=== PATIENT | male | born 1960 | race Caucasian/White ===

== ENCOUNTER 2023-07-14 16:56 | Emergency (ER) | payer OTHER, SELFPAY ==
[~2023-07-14] VITALS: Ht 170.2 cm; Wt 68.2 kg
[2023-07-14] MEDS ORDERED: iohexol 350MG/ML 100ml bottle IV ONE ×2 (17:15→18:21)
[2023-07-14 17:35] LABS: BASOPHILS % (AUTO) 0.3 % (0-1); EOSINOPHILS # (AUTO) 0.1 X10'3 (0-0.9); EOSINOPHILS % (AUTO) 0.9 % (0-6); HEMATOCRIT 45.3 % (42.0-52.0); LYMPHOCYTES # (AUTO) 1.8 X10'3 (1.1-4.8); LYMPHOCYTES % (AUTO) 21.7 % (21-51); MEAN CORPUSCULAR HEMOGLOBIN 30.2 PG (27.0-31.0); MEAN CORPUSCULAR HGB CONC 33.1 g/dL (33.0-36.5); MEAN CORPUSCULAR VOLUME 91.3 FL (78-98); MEAN PLATELET VOLUME 8.2 FL (7.4-10.4); MONOCYTES # (AUTO) 0.5 X10'3 (0-0.9); MONOCYTES % (AUTO) 6.7 % (2-12); NEUTROPHILS # (AUTO) 5.7 X10'3 (1.8-7.7); NEUTROPHILS % (AUTO) 70.4 % (42-75); PLATELET COUNT 209 X10'3 (140-440); RED BLOOD COUNT 4.97 X10'6 (4.70-6.10); RED CELL DISTRIBUTION WIDTH 13.3 % (11.5-14.5); WHITE BLOOD COUNT 8.1 X10'3 (4.5-11.0)
[2023-07-14 17:46] LABS: APTT 26 SECONDS (22-32); PROTHROMBIN TIME 10.5 SECONDS (9.0-12.0)
[2023-07-14 17:55] LABS: ALBUMIN 3.7 G/DL (3.4-5.0); ANION GAP 10 (8-16); BLOOD UREA NITROGEN 20 MG/DL (7-18); BUN/CREATININE RATIO 19.4 (10.0-20.0); CALCIUM 9.1 MG/DL (8.5-10.1); CHLORIDE 104 MMOL/L (99-107); CREATININE 1.03 MG/DL (0.60-1.10); GLUCOSE 93 MG/DL (70-104); POTASSIUM 3.2 MMOL/L (3.5-5.1); PRO BRAIN NATRIURETIC PEPTIDE 143 PG/ML (0-125); SODIUM 145 MMOL/L (135-145); TOTAL CARBON DIOXIDE 30.9 MMOL/L (24-32); eCRCL 68 ML/MIN; eGFR 73 ML/MIN
[2023-07-14] MEDS ORDERED: iohexol 350 MG/ML 50ML vial IV ONE ×2 (18:18→18:53)
[2023-07-14] MEDS: ondansetron/PF 4mg/2ml inj IV ONE (18:30)
[2023-07-14] MEDS: normal saline 1000ml 1,000 ML IV ONE ×3 (18:35→21:55)
[2023-07-14 18:38] LABS: ETHANOL < 10 MG/DL (<10); THYROID STIMULATING HORMONE 4.56 ulU/ml (0.34-4.50)
[2023-07-14 18:53] LABS: ALANINE AMINOTRANSFERASE 35 U/L (12-78); ALKALINE PHOSPHATASE 73 IU/L (46-116); ASPARTATE AMINO TRANSFERASE 21 U/L (10-37); BILIRUBIN,DIRECT 0.1 MG/DL (0-0.3); BILIRUBIN,TOTAL 0.5 MG/DL (0.1-1.0); LIPASE 130 U/L (16-77); TOTAL PROTEIN 7.5 G/DL (6.4-8.2)
[2023-07-14] MEDS: metoclopramide 5 mg/ml inj IV ONE (19:05)
[2023-07-14] MEDS: morphine 4 MG/ML inj SYRINge IV ONE (19:11)
[2023-07-14] MEDS: niCARDipine-NS 40mg/200ml IVPB 200 ML IV SCH (19:43)
[2023-07-14 19:56] LABS: FIBRINOGEN 279 MG/DL (177-424)
[2023-07-14] MEDS: morphine 4 MG/ML inj SYRINge ONE ×2 (20:08→22:12)
[2023-07-14] MEDS: LidoCAINE 2% Topical Jelly 11mL syringe (UROJET) TOP ONE (21:31)
[2023-07-14 22:14] VITALS: TEMP 98.6
[2023-07-14] MEDS ORDERED: morphine 4 MG/ML inj SYRINge IV ONE (22:15)
[2023-07-14 22:24] LABS: URINE AMPHETAMINE SCREEN NEGATIVE (Neg); URINE BARBITUATE SCREEN NEGATIVE (Neg); URINE BENZODIAZEPINES SCREEN NEGATIVE (Neg); URINE CANNABINOID SCREEN NEGATIVE (Neg); URINE COCAINE SCREEN NEGATIVE (Neg); URINE METHADONE SCREEN NEGATIVE (Neg); URINE OPIATE SCREEN POSITIVE (Neg); URINE PHENCYCLIDINE SCREEN NEGATIVE (Neg)
[2023-07-14 22:38] VITALS: BP 112/57; PULSE 76; RESP 18; O2SAT 99
== END 2023-07-14 22:41 ==
LOC: ER 16:57
DX: I71.03 Dissection of thoracoabdominal aorta (principal); I71.011 Dissection of aortic arch; I65.22 Occlusion and stenosis of left carotid artery
CPT/HCPCS: 36415; 70450; 70496; 70498; 71045; 71275; 74175; 80048; 80076; 80305; 80320; 82948; 83605; 83690; 83880; 84443; 84484; 85025; 85384; 85610; 85730; 86885; 86900; 86901; 86920; 87040; 93005; 93308; 96361; 96365; 96366; 96375; 99291; 99292; A6258; J2270; J2405; J3490; J7030; Q9967

== ENCOUNTER 2023-07-26 09:53 | Emergency (ER) | payer SELFPAY ==
[~2023-07-26] VITALS: Ht 170.2 cm; Wt 66.0 kg
[2023-07-26 09:59] VITALS: TEMP 98.4
[2023-07-26 11:25] LABS: BASOPHILS % (AUTO) 0.4 % (0-1); EOSINOPHILS # (AUTO) 0.3 X10'3 (0-0.9); EOSINOPHILS % (AUTO) 2.4 % (0-6); HEMATOCRIT 30.3 % (42.0-52.0); HEMOGLOBIN 10.1 g/dl (14.0-17.9); LYMPHOCYTES # (AUTO) 0.9 X10'3 (1.1-4.8); LYMPHOCYTES % (AUTO) 7.8 % (21-51); MEAN CORPUSCULAR HEMOGLOBIN 31.2 PG (27.0-31.0); MEAN CORPUSCULAR HGB CONC 33.2 g/dL (33.0-36.5); MEAN PLATELET VOLUME 7.4 FL (7.4-10.4); MONOCYTES # (AUTO) 0.7 X10'3 (0-0.9); MONOCYTES % (AUTO) 6.2 % (2-12); NEUTROPHILS # (AUTO) 9.5 X10'3 (1.8-7.7); NEUTROPHILS % (AUTO) 83.2 % (42-75); PLATELET COUNT 446 X10'3 (140-440); RED BLOOD COUNT 3.22 X10'6 (4.70-6.10); RED CELL DISTRIBUTION WIDTH 15.1 % (11.5-14.5); WHITE BLOOD COUNT 11.4 X10'3 (4.5-11.0)
[2023-07-26 11:40] LABS: APTT 27 SECONDS (22-32); PROTHROMBIN TIME 10.4 SECONDS (9.0-12.0)
[2023-07-26 11:46] LABS: ALBUMIN 2.5 G/DL (3.4-5.0); ANION GAP 7 (8-16); BLOOD UREA NITROGEN 22 MG/DL (7-18); BUN/CREATININE RATIO 14.8 (10.0-20.0); CALCIUM 8.9 MG/DL (8.5-10.1); CHLORIDE 104 MMOL/L (99-107); CREATININE 1.49 MG/DL (0.60-1.10); GLUCOSE 105 MG/DL (70-104); POTASSIUM 4.2 MMOL/L (3.5-5.1); SODIUM 139 MMOL/L (135-145); TOTAL CARBON DIOXIDE 27.8 MMOL/L (24-32); eCRCL 47 ML/MIN; eGFR 47 ML/MIN
[2023-07-26] MEDS ORDERED: iohexol 350 MG/ML 50ML vial IV ONE (11:57)
[2023-07-26] MEDS ORDERED: iohexol 350MG/ML 100ml bottle IV ONE (11:57)
[2023-07-26] MEDS: ringers solution, lacted 1,000 ML IV ONE (13:40)
[2023-07-26] MEDS: aspirin 81mg, enteric-coated 1 TAB TABLET.DR PO ONE (13:52)
[2023-07-26 15:10] VITALS: BP 124/69; PULSE 83; RESP 18; O2SAT 100
== END 2023-07-26 15:15 | disposition home or self-care (01) ==
LOC: ER 09:54
DX: R20.0 Anesthesia of skin (principal); R20.2 Paresthesia of skin; I25.10 Atherosclerotic heart disease of native coronary artery without angina pectoris
CPT/HCPCS: 36415; 70450; 70496; 70498; 71045; 80048; 82948; 84484; 85025; 85610; 85730; 93005; 96360; 99285; J3490; J7120; Q9967

== ENCOUNTER 2024-02-21 08:31 | Outpatient (CLI) | payer MEDICARE ==
[2024-02-19 16:40] LABS: ALBUMIN 3.8 G/DL (3.4-5.0); ANION GAP 6 (8-16); BLOOD UREA NITROGEN 31 MG/DL (7-18); BUN/CREATININE RATIO 22.3 (10.0-20.0); CALCIUM 9.1 MG/DL (8.5-10.1); CHLORIDE 104 MMOL/L (99-107); CREATININE 1.39 MG/DL (0.60-1.10); GLUCOSE 101 MG/DL (70-104); POTASSIUM 4.2 MMOL/L (3.5-5.1); SODIUM 142 MMOL/L (135-145); TOTAL CARBON DIOXIDE 31.7 MMOL/L (24-32); eGFR 51 ML/MIN
[2024-02-21] MEDS ORDERED: iohexol 350MG/ML 100ml bottle IV ONE (08:53)
== END 2024-02-21 23:59 | disposition home or self-care (01) ==
LOC: RAD 08:31
PROVIDERS: ATTEND Nurse Practitioner
DX: N40.0 Benign prostatic hyperplasia without lower urinary tract symptoms (principal); N26.1 Atrophy of kidney (terminal); I25.10 Atherosclerotic heart disease of native coronary artery without angina pectoris; I71.010 Dissection of ascending aorta; Z95.828 Presence of other vascular implants and grafts
CPT/HCPCS: 36415; 71275; 74174; 80048; Q9967

== ENCOUNTER → 2025-03-17 | Outpatient (CLI) | payer MEDICARE ==
[2025-03-13 11:25] LABS: TOTAL CARBON DIOXIDE 31.9 MMOL/L (24-32)
[2025-03-13 11:26] LABS: CREATININE 1.38 MG/DL (0.60-1.10); eGFR 52 ML/MIN
[~2025-03-17] VITALS: Ht 170.2 cm; Wt 66.0 kg
[~2025-03-17] MED LIST: iohexol 350 MG/ML 50ML vial IV ONE
--- NOTE | 2025-03-17 15:53 | RADIOLOGY REPORT ---
CLINICAL INFORMATION: 64 years old, Male; DISSECTION OF ASCENDING AORTA. TECHNIQUE:Axial CTA images of the chest, abdomen, and pelvis were obtained prior to and after the uneventful administration of 150 mL of Omnipaque 350 IV contrast. Coronal and sagittal reformatted images and MIP images were obtained, reviewed, and stored. One or more of the following dose reduction techniques were used: Automated exposure control. Adjustment of mA and/or kV according to patient size. CTDIvol = 8.56, 8.54, 10.33, 9.56, 1.06, 8.7 mGy DLP = 2223.72 mGy-cm COMPARISON: CT CTA CHEST ABDOMEN PELVIS on DOS: 02/21/24. Prior CTA chest dated 07/14/2023. FINDINGS: Aorta: Postsurgical changes of prior repair of a previously seen meme type a aortic dissection. There is no thoracic or abdominal aortic aneurysm or dissection. Origins of the brachiocephalic, left common carotid, and left subclavian arteries are patent. Origins of the celiac artery, SMA, right renal artery, and RONALDO are patent. There is a stent at the origin of the left renal artery, which appears patent. Pulmonary arteries: No evidence of pulmonary embolism. Cardiac: Heart size is within normal limits. Sypdclke-[id number]-[id number] coronary artery calcification. Mediastinum/tarik: No mass or adenopathy. Lungs: Dependent atelectasis in the lung bases. Chest wall: No mass or other abnormality. Abdomen/pelvis: Liver, spleen, pancreas, and adrenal glands appear unremarkable. There is a small cyst at the superior pole of the right kidney. No hydronephrosis. Left kidney is atrophic. No lymphadenopathy. Nonspecific nondilated fluid-filled small bowel loops. No small bowel obstruction. Normal appendix. Scattered colonic diverticula without adjacent inflammatory changes to suggest diverticulitis. Moderate stool in the colon. Prostate is enlarged. Bladder is mildly to moderately distended. Bones: No acute fracture or suspicious intraosseous lesions. IMPRESSION: 1. Postsurgical changes of prior aortic dissection repair. No thoracic or abdominal aortic aneurysm or dissection. 2. Stent in the left renal artery appears patent. 3. No evidence of pulmonary embolism. 4. No evidence of acute disease in the chest. 5. Nonspecific nondilated fluid-filled small bowel loops. Findings may be seen with ileus or enteritis in the appropriate clinical setting. No small bowel obstruction. 6. Enlarged prostate. 7. Mildly to moderately distended bladder. 8. Atrophic left kidney. 9. Additional findings as described above.
== END | disposition home or self-care (01) ==
LOC: RAD 09:36
PROVIDERS: ATTEND Nurse Practitioner
DX: I70.0 Atherosclerosis of aorta (principal); I71.010 Dissection of ascending aorta; I25.10 Atherosclerotic heart disease of native coronary artery without angina pectoris; N40.0 Benign prostatic hyperplasia without lower urinary tract symptoms; N32.89 Other specified disorders of bladder; N26.1 Atrophy of kidney (terminal); J98.11 Atelectasis
CPT/HCPCS: 36415; 71275; 74174; 80048; Q9967